=== PATIENT | male | born 1965 | race Caucasian/White ===

== ENCOUNTER 2017-07-29 20:21 | Emergency (ER) | payer OTHER ==
--- NOTE | 2017-07-29 21:35 | EDPHY ---
H & P Time Seen by Provider: 07/29/17 20:45 HPI/ROS: CHIEF COMPLAINT: Laceration left thumb HISTORY OF PRESENT ILLNESS: 52-year-old male presents to the emergency department by private vehicle complaining of a laceration to his left thumb the did the night before. He cut with a knife and was able to control the bleeding with firm direct pressure. He presents now to the emergency department because the wound continued to bleed today and he was requesting stitches. He believes his tetanus shot is current. Denies any other trauma or injury. ROS: Denies numbness or tingling in his fingers, retained foreign body. Past Medical/Surgical History: Dyslipidemia, hypertension Social History: Single and lives in [place] Smoking Status: Never smoked Physical Exam: On examination patient has a 2 cm laceration to the distal, palmar aspect of the left thumb on the medial side. No obvious nail involvement. No subungual hematoma. The laceration does not extend into the D IP joint. No palpable bony tenderness. Full range of motion of his left thumb. The other fingers do not appear injured. Normal sensation to light touch with normal 2 point discrimination. Constitutional: Initial Vital Signs Temperature (C) 36.7 C 07/29/17 20:27 Heart Rate 50 L 07/29/17 20:27 Respiratory Rate 16 07/29/17 20:27 Blood Pressure 146/95 H 07/29/17 20:27 O2 Sat (%) 99 07/29/17 20:27 O2 Delivery Mode Room Air Allergies/Adverse Reactions: No Known Allergies Allergy (Verified 07/29/17 20:30) Home Medications: Medication Instructions Recorded NK [No Known Home Meds] 07/29/17 MDM/Departure - [facility] ED Course/Re-evaluation: 52-year-old male presents with laceration to his left thumb. The wound is now nearly 24 hours old. I explained the reasons for not placing sutures in the wound. The wound does not extend into to the joint. I do not think sutures are indicated. The wound was cleansed and dressing applied. Patient was given wound care precautions. - Depart Disposition: Home, Routine, Self-Care Clinical Impression: Laceration of left thumb Qualifiers: Encounter type: initial encounter Damage to nail status: without damage Foreign body presence: without foreign body Qualified Code(s): S61.012A - Laceration without foreign body of left thumb without damage to nail, initial encounter Condition: Good Instructions: Laceration (ED), Acute Wounds (ED) Additional Instructions: Return if you notice any signs or symptoms of infection such as redness, swelling, increased pain, fever, purulent drainage. Keep wound dry, clean and protected. Referrals: SCARLETT LAGUNAS [Primary Care Provider] - As per Instructions
[2017-07-29 21:56] VITALS: BP 148/91; PULSE 52; RESP 18; TEMP 97.9; O2SAT 96
== END 2017-07-29 21:45 | disposition home or self-care (01) ==
DX: S61.012A Laceration without foreign body of left thumb without damage to nail, initial encounter (principal); I10 Essential (primary) hypertension; W26.0XXA Contact with knife, initial encounter; Y99.8 Other external cause status

== ENCOUNTER 2018-11-02 17:02 | Emergency (ER) | payer OTHER ==
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
[2018-11-02 18:17] VITALS: BP 145/87
== END 2018-11-02 18:53 | disposition home or self-care (01) ==
DX: S22.42XD Multiple fractures of ribs, left side, subsequent encounter for fracture with routine healing (principal); V00.322D Snow-skier colliding with stationary object, subsequent encounter